=== PATIENT | male | born 1965 | race Caucasian/White ===

== ENCOUNTER 2018-03-06 20:48 | Emergency (ER) | payer MEDICARE, OTHER ==
[2018-03-06] MEDS: KETOROLAC 60 MG INJ IM (22:55)
[2018-03-06] MEDS: HYDROCODONE/APAP (5/325) TAB PO (22:57)
== END 2018-03-07 00:50 | disposition left against medical advice (07) ==
LOC: FTE 03-07 00:50
DX: M79.604 Pain in right leg (principal); M79.605 Pain in left leg; I10 Essential (primary) hypertension; F17.210 Nicotine dependence, cigarettes, uncomplicated
CPT/HCPCS: 73590; 96372; 99284-25